=== PATIENT | female | born 1995 | race Caucasian/White ===

== ENCOUNTER 2017-01-04 23:13 | Outpatient (CLI) | payer OTHER ==
[~2017-01-04 23:13] MED LIST: OXYC-541 PO; PREN1TAB73 PO
[2017-01-04] MEDS ORDERED: FOLI0.4T2 PO (23:40)
[2017-01-04] MEDS ORDERED: RANI150T12 PO (23:40)
== END 2017-01-04 23:52 | disposition home or self-care (01) ==
LOC: OBOBS 23:13 → MC 23:13 → OBOBS 23:52
PROVIDERS: ATTEND Obstetrics & Gynecology
DX: O36.8130 Decreased fetal movements, third trimester, not applicable or unspecified (principal); Z3A.33 33 weeks gestation of pregnancy

== ENCOUNTER 2017-02-28 06:00 | Inpatient (IN) ==
[2017-02-28] MEDS ORDERED: ACETAMINOPHEN 500 MG TABLET PO PRN ×2 (07:14→15:51)
[2017-02-28] MEDS ORDERED: CALCIUM CARBONATE Chewable 500mg TABLET PO PRN (07:14)
[2017-02-28] MEDS ORDERED: METHYLERGONOVINE 0.2 MG/ML INJECTION IM PRN (07:14)
[2017-02-28] MEDS ORDERED: D5LR 1,000 ML IV PRN (07:14)
[2017-02-28] MEDS ORDERED: LR 1,000 ML IV PRN (07:14)
[2017-02-28] MEDS ORDERED: MAG-AL + SIM ORAL LIQUID 30ml PO PRN ×2 (07:14→15:51)
[2017-02-28] MEDS ORDERED: OXYTOCIN DRIP 30 UNIT/500 ML ML IV PRN (07:14)
[2017-02-28] MEDS ORDERED: LIDOCAINE 1% (10mg/ml) 2mL INJ PF SDV ID PRN (07:14)
[2017-02-28] MEDS ORDERED: CARBOPROST 250 MCG/ML INJECTION IM PRN (07:14)
--- NOTE | 2017-02-28 09:17 | Anesthesia Preoperative Report ---
Anesthesia Epidural/Spinal Rec - Date and Time Date: 02/28/17 Preoperative Diagnosis: induction, 39 6/7 weeks Procedure: Labor Epidural Plan: Epidural - Vital Signs Vital Signs: Temp Pulse Resp BP Pulse Ox 98.2 F 74 16 135/100 H 99 02/28/17 08:28 02/28/17 08:28 02/28/17 08:28 02/28/17 08:28 02/28/17 08:28 /Para: P:1 - Medictaions & Allergies Inpatient Medications: Current Medications Acetaminophen (Tylenol) 500 - 1,000 mg PO Q4H PRN PRN Reason: Pain Al Hydroxide/Mg Hydroxide (Maalox Plus) 30 ml PO Q3H PRN PRN Reason: Indigestion Calcium Carbonate (Tums) 500 - 1,000 mg PO Q2H PRN PRN Reason: Indigestion Carboprost Tromethamine (Hemabate) 250 mcg IM O PRN PRN Reason: .Downtime Dextrose/Lactated Ringer's (Dextrose 5%-Lactated Ringers) 1,000 mls @ 125 mls/ hr IV .Q8H PRN PRN Reason: Labor Lactated Ringer's (Lactated Ringers) 1,000 mls @ 1,000 mls/hr IV .Q1H PRN PRN Reason: as directed Oxytocin (Pitocin Drip) 30 unit in 500 mls @ 2 mls/hr IV .Q24H PRN; Protocol PRN Reason: Induction/Augmentation Lidocaine HCl (Xylocaine-Mpf 1% Vial) 0.2 mg ID O PRN PRN Reason: IV Start Methylergonovine Maleate (Methergine) 0.2 mg IM O PRN Misoprostol (Cytotec) 800 mcg NC ONCE PRN Allergies/Adverse Reactions: Allergies Allergy/AdvReac Type Severity Reaction Status Date / Time No Known Allergies Allergy Verified 02/23/17 01:52 - Home Medications Home Medications: Home Medications Medication Instructions Recorded Confirmed Type Pnv95/Ferrous Fumarate/FA 1 tab PO HS #0 09/16/15 History [ Tablet] Folic Acid PO DAILY #0 tab 01/04/17 History Ranitidine HCl (Zantac) PO DAILY #0 tab 01/04/17 History Tylenol 1,000 mg PO PRN 02/23/17 02/23/17 History - Medical History Cardiovascular: Reports: Hypertension (PIH with last ) Gastrointestional: Reports: Gastroesophageal Reflux Disease Neuro/Musculoskeletal: Reports: Headaches - Surgical History Anesthesia Reactions: None Hx Family Anesthesia Reaction: No History of Motion Sickness: No - Social History Smoking Status: Current every day smoker Packs per day: 0 (smokes 1/3 pk daily) Pack-years: 7 Second Hand Exposure: No Substance Use Type: does not use Alcohol Intake Frequency: does not drink Hx Chewing Tobacco Use: No - Pertinent Findings Lab Data: CBC and BMP 02/28/17 07:38 - Physical Exam Respiratory Exam: lungs clear Cardiovascular Exam: regular rate and rhythm - Airway Assessment Mallampati Score: II TMD: 3 Fingerbreadths Neck Extension: good Adult Head Mouth w/Numbe Teeth: 1 - loose Overall Assessment: no airway concerns - ASA ASA Score: 2 - Discussion Discussion: Discussed risks/options/alternatives of anesthesia and questions answered. Patient consents. Nursing pain assessment noted. Attestation Statement: Prior to the delivery of any anesthetic medication, I examined the patient, developed the plan, obtained the patient's consent and discussed the risk and benefits of the procedure with the patient/guardian.
[2017-02-28] MEDS ORDERED: ROPIVACAINE 1% 10MG/ML INJ 200 MG, SUFentanil 50 MCG in NS 80 ML EPI ONE (13:00)
[2017-02-28] MEDS ORDERED: SALINE FLUSH 10ml SYRINGE IVF PRN (15:51)
[2017-02-28] MEDS ORDERED: BENZOCAINE 20% SPRAY 0.5 ML MM ONE (15:51)
[2017-02-28] MEDS ORDERED: HYDROCORTISONE 2.5% CREAM 30gm RECTALLY PRN (15:51)
[2017-02-28] MEDS ORDERED: PHENYLEPHRINE RECTAL SUPPOSITORY PR PRN (15:51)
[2017-02-28] MEDS ORDERED: DiphenhydrAMINE 25 MG CAPSULE PO PRN (15:51)
--- NOTE | 2017-02-28 17:44 | Anesthesia Postoperative Note ---
- Date and Time Date: 02/28/17 Time: 17:43 - Status Patient Participated in Evaluation: Patient Participated in Person Vital Signs: Temp Pulse Resp BP Pulse Ox 98.2 F 74 16 135/100 H 99 02/28/17 08:28 02/28/17 08:28 02/28/17 08:28 02/28/17 08:28 02/28/17 08:28 Respiratory Function: Airway Patent Cardiovascular Function: Regular Pulse EKG Rhythm: Normal Sinus Rhythm Mental Status: Alert and Oriented Pain Intensity: 0 Hydration: Taking PO Fluids Complications During Recover: None Apparent - Follow-Up Instructions Instructions: Per Surgeon
[2017-02-28] MEDS: HYDROCODONE/APAP 5mg/325mg TABLET PO PRN ×2 (18:45→23:24)
[2017-02-28] MEDS: IBUPROFEN 800 MG TABLET PO PRN (18:45)
[2017-02-28] MEDS: OXYTOCIN DRIP 30 UNIT/500 ML ML IV SCH ×2 (19:00→22:16)
[2017-03-01] MEDS: CALCIUM CARBONATE Chewable 500mg TABLET PO PRN ×2 (02:23→09:36)
[2017-03-01] MEDS: IBUPROFEN 800 MG TABLET PO PRN ×2 (02:41→11:59)
[2017-03-01] MEDS: HYDROCODONE/APAP 5mg/325mg TABLET PO PRN ×2 (07:03→11:59)
--- NOTE | 2017-03-01 08:01 | Progress Note ---
OB PP Progress Note Free Text - Date Date: 03/01/17 - Progress Note Progress Note: Pt sleeping. will return to round at a different time.
--- NOTE | 2017-03-01 08:59 | Progress Note ---
OB PP Progress Note Free Text - Date Date: 03/01/17 - Progress Note Progress Note: vss af hgb discussed desires dc today wants rx instructions reviewed q&a-krb
[2017-03-01] MEDS ORDERED: DOCUSATE CALCIUM 240 MG CAPSULE PO SCH (09:00)
--- NOTE | 2017-03-01 09:04 | Discharge Summary ---
Discharge Plan - Med Rec/Dispo Referrals/Follow Up: Thea Garcia MD [Physician] - Prescriptions: New Hydrocodone/APAP 5/325 [[place] 5/325] 1 - 2 tab PO Q4H PRN #25 tab PRN Reason: Pain Ibuprofen [Motrin] 800 mg PO Q8H PRN #30 tab PRN Reason: Pain Continue Ranitidine HCl (Zantac) PO DAILY #0 tab Pnv95/Ferrous Fumarate/FA [ Tablet] 1 tab PO HS #0 Tylenol 1,000 mg PO PRN Discontinued Folic Acid PO DAILY #0 tab - Disposition 01 Discharged Home, Self-Care
[2017-03-01] MEDS ORDERED: RHO(D) IMMUNE GLOBULIN 300 MCG/2 ML INJECTION IVP ONE (09:15)
--- NOTE | 2017-03-01 10:41 | Labor and Delivery Note ---
DATE OF DELIVERY: 02/28/2017 DIAGNOSES 1. A 21-year-old white female, G2, P1, at 39.6 weeks gestational age. 2. Artificial rupture of membranes. 3. Epidural anesthesia. 4. Spontaneous vaginal delivery. 5. Male infant, 9/9 Apgars, 3485 grams ([place]). 6. First-degree perineal laceration--repaired. BRIEF DESCRIPTION This is a patient of Dr. Garcia that requested and was scheduled for an induction today. Her cervix was initially 1 cm. Artificial rupture of membranes occurred at 10:32 a.m. Pitocin reached a maximum of 20 milliunits a minute. The patient got an epidural block, and after the block she was checked and she was completely dilated. We labored down for a little bit and began pushing. Spontaneous vaginal delivery occurred at 1411 hours. was bulb suctioned after delivery of head and then again after delivery of the body. Cord was doubly clamped and cut after draining for a minute and one-half, and the 's father cut the cord. was then placed on the mother's abdomen. Placenta delivered spontaneously and was intact. There was a small first-degree laceration. It was repaired with 3-0 chromic. EBL was 250. Maternal blood type is B negative, rubella is immune, and GBS is negative. MTDD
== END 2017-03-01 16:30 | disposition home or self-care (01) | DRG 775 ==
LOC: MC 07:03
PROVIDERS: ADMIT Obstetrics & Gynecology; ATTEND Obstetrics & Gynecology